=== PATIENT | male | born 1945 | race African-American/Black ===

== ENCOUNTER → 2016-09-15 | Outpatient (CLI) | payer OTHER ==
[2016-01-31 15:51] VITALS: BP 141/63
[~2016-09-15] MED LIST: AMLO5TAB4 PO; ANTI10DR7 AS; ASPI81TA44 PO; CLOP75TA57 PO; CRESTOR20 MG PO; GLYB5TAB3 PO; HYDR-2680 PO; HYDR-971 PO; Isosorbide Mononitrate PO; LISI-334 PO; METF-620 PO; METH-37 PO; METO25TA9 PO; REGADENOSON 0.4 MG/5 ML DISP.SYRIN. IV ONE; TAMS0.4C97 PO
--- NOTE | 2016-09-15 21:13 | RAD ---
APPROVED REPORT Test Type: Pharmacological Stress Nurse/Tech: Ainsley Rome RN Test Indications: chest pain Cardiac History: see ehr Medications: see ehr Medical History: see ehr Resting ECG: SR Resting Heart Rate: 55 bpm Resting Blood Pressure: 125/75mmHg Pretest Chest Pain: None Nurse/Tech Notes Lungs CTA, S1, S2 Consent: The procedure was explained to the patient in lay terms. Informed consent was witnessed. Norman eout was entered into [employer]. History and Stress Test performed by Shai TianNRobert Pharm. Details Pharmacologic stress testing was performed using 0.4mg per 5ml of regadenoson given intravenously ove r 7-10 seconds. Stress Symptoms No chest pain or symptoms. POST EXERCISE Reason for Termination: Infusion complete Max HR: 91 bpm Max Blood Pressure: 121/50mmHg Blood Pressure response to exercise: Normal blood pressure response during stress. Chest Pain: No. Arrhythmia: No. ST Change: No. INTERPRETATION Stress EKG Conclusion: No acute changes were noted. Imaging Protocol IMAGE PROTOCOL: Rest Tc-99m/stress Tc-99m 1 day Rest: Stress: Viability: Radiopharm.Tc99m [id number] Sestamibi Dose12.1mCi 34.7mCi Duration 15min. 10min. Img Date 09/15/2016 09/15/2016 Inj-Img [id number]. 75min. Rest Admin Site:IV - Right AntecubitalAdministrator:CLARISA Mata Stress Admin Site: IV - Right AntecubitalAdministrator: BETO Richardson, ARRT (R)(N) STRESS DATA End Diast. Vol.110.0mlAv. Heart Rate63.0bpm End Syst. Vol.28.0mlCO Index BSA0.0L/min Myocardial Onia020.0gEject. Kydztkyf02.0% Stress Rates Pk. Fill Rate3.03EDV/secLVtime Pk. Fill 230.88msec Pk. Empty Rate3.82ESV/secLVtime Pk. Nqfrn959.01msec 04/06 Pk. Fill1.37EDV/sec Stress Scores Regional WT1.00Summed WT3.00 Regional WM0.00Summed WM0.00 LV Perf. Quant 17 Seg. SSS1.00 17 Seg. SRS1.00 17 Seg. SDS1.00 Stress Defect Extent (% LAD)0.00Rest Defect Extent (% LAD)0.00Rev. Defect Extent (% LAD)0.00 Stress Defect Extent (% LCX) 0.00Rest Defect Extent (% LCX)0.00Rev. Defect Extent (% LCX)0.00 Stress Defect Extent (% RCA)0.00Rest Defect Extent (% RCA)0.00Rev. Defect Extent (% RCA)0.00 Stress Defect Extent (% ANTOINETTE)0.00Rest Defect Extent (% ANTOINETTE)0.00Rev. Defect Extent (% ANTOINETTE)0.00 Conclusion 1. No electrocardiographic changes suggestive of myocardial ischemia with pharmacological stress. 2. No perfusion defects to suggest myocardial ischemia or scar. 3. Normal wall motion and wall thickening with an ejection fraction of 75%. 4. Scan indicates low risk for future cardiac events
== END | disposition home or self-care (01) ==
LOC: NM 08:41
PROVIDERS: ATTEND Internal Medicine Cardiovascular Disease
DX: I25.119 Atherosclerotic heart disease of native coronary artery with unspecified angina pectoris (principal); R07.9 Chest pain, unspecified; Z95.5 Presence of coronary angioplasty implant and graft
CPT/HCPCS: 78452; 93017; 96374; 96375; 96376; A9500; J2785

== ENCOUNTER → 2016-10-01 | Outpatient (CLI) | payer OTHER ==
[2016-01-31 15:51] VITALS: BP 141/63
[~2016-10-01] MED LIST changes: -REGADENOSON 0.4 MG/5 ML DISP.SYRIN. IV ONE
--- NOTE | 2016-10-01 12:25 | CARD ---
APPROVED REPORT EXAM: Two-dimensional and M-mode echocardiogram with Doppler and color Doppler. Other Information Quality : Fair INDICATION Pericarditis Chest Pain 2D DIMENSIONS RVDd2.4 (2.9-3.5cm)Left Atrium(2D)2.8 (1.6-4.0cm) IVSd1.1 (0.7-1.1cm)Aortic Root(2D)2.6 (2.0-3.7cm) LVDd4.4 (3.9-5.9cm)LVOT Diameter2.0 (1.8-2.4cm) PWd1.1 (0.7-1.1cm)LVDs2.3 (2.5-4.0cm) FS (%) 30.0 %SV68.1 ml LVEF(%)70.0 (>50%) Aortic Valve AoV Peak Walter.171.1cm/sAoV VTI28.4cm AO Peak GR.11.7mmHgLVOT Peak Walter.161.3cm/s LVOT VTI 31.43cmAO Mean GR.5mmHg STEPHANIE (VMAX)2.29rn4BTA (VTI)3.35cm2 Mitral Valve MV E Beyekihy51.6cm/sMV DECEL [id number] MV A Tzxfqhoa48.2cm/sMV YBU30ej E/A Ratio0.8MVA (PHT)2.45cm2 Tricuspid Valve TR P. Jfgwjvbl712fb/sRAP XDNRXLRA6nhKh TR Peak Gr.76fbYuHUCE84ngGi LEFT VENTRICLE The left ventricle is normal size. Moderate concentric left ventricular hypertrophy The left ventricu lar systolic function is normal and the ejection fraction is within normal range. The Ejection Fracti on is 70%. There is normal LV segmental wall motion. Transmitral Doppler flow pattern is Grade II-abn ormal relaxation pattern. RIGHT VENTRICLE The right ventricle is normal size. The right ventricular systolic function is normal. ATRIA The left atrium size is normal. The right atrium size is normal. The interatrial septum is intact wit h no evidence for an atrial septal defect or patent foramen ovale as noted on 2-D or Doppler imaging. AORTIC VALVE The aortic valve is normal in structure Doppler and Color Flow revealed trace aortic regurgitation. T here is no significant aortic valvular stenosis. MITRAL VALVE The mitral valve is normal in structure There is no evidence of mitral valve prolapse. There is no mi tral valve stenosis. Doppler and Color-flow revealed trace mitral regurgitation. TRICUSPID VALVE The tricuspid valve is normal in structure Doppler and Color Flow revealed trace tricuspid regurgitat ion. The PA pressure was estimated at 23 mmHg. There is no tricuspid valve stenosis. PULMONIC VALVE The pulmonary valve is normal in structure and function. Doppler and Color Flow revealed no pulmonic valvular regurgitation. There is no pulmonic valvular stenosis. GREAT VESSELS The aortic root is normal in size. The ascending aorta is normal in size. The IVC is normal in size a nd collapses >50% with inspiration. PERICARDIAL EFFUSION There is no evidence of significant pericardial effusion. Critical Notification Critical Value: No <Conclusion> Moderate concentric left ventricular hypertrophy The left ventricular systolic function is normal and the ejection fraction is within normal range. The Ejection Fraction is 70%. Transmitral Doppler flow pattern is Grade II-abnormal relaxation pattern. The left atrium size is normal. The right atrium size is normal. Doppler and Color Flow revealed trace aortic regurgitation. Doppler and Color Flow revealed trace aortic regurgitation. Doppler and Color-flow revealed trace mitral regurgitation. Doppler and Color Flow revealed trace tricuspid regurgitation. The PA pressure was estimated at 23 mmHg. The pulmonary valve is normal in structure and function. There is no evidence of significant pericardial effusion.
== END | disposition home or self-care (01) ==
LOC: ECHO 09:49
PROVIDERS: ATTEND Internal Medicine Cardiovascular Disease
DX: I08.3 Combined rheumatic disorders of mitral, aortic and tricuspid valves (principal); Z86.79 Personal history of other diseases of the circulatory system; I31.9 Disease of pericardium, unspecified
CPT/HCPCS: 93306

== ENCOUNTER → 2016-10-27 | Day surgery (SDC) | payer OTHER ==
[~2016-10-27] MED LIST changes: +HYDROmorphone 2 MG/ML VIAL IV PRN; +IV RINGERS,LACTATED 1000ML 1,000 ML IV SCH; +LIDOCAINE 1% 1 ML SYRINGE. ID PRN; +METO25TA4 PO; +MORPHINE SULFATE 2 MG/ML DISP.SYRIN. IV PRN; +ONDANSETRON PF 4 MG/2 ML VIAL. IV PRN; +PROCHLORPERAZINE 10 MG/2 ML VIAL. IV PRN; +PROPOFOL 20 ML IV ONE; +fentaNYL PF VIAL 100 MCG/2 ML VIAL IV PRN
[2016-10-27 08:29] VITALS: BP 156/104
== END | disposition home or self-care (01) ==
LOC: ENDOS 06:32
PROVIDERS: ATTEND Internal Medicine Gastroenterology
DX: K64.0 First degree hemorrhoids (principal); K29.50 Unspecified chronic gastritis without bleeding; E78.00 Pure hypercholesterolemia, unspecified; I10 Essential (primary) hypertension; K21.9 Gastro-esophageal reflux disease without esophagitis; E11.9 Type 2 diabetes mellitus without complications; Z72.89 Other problems related to lifestyle; Z86.39 Personal history of other endocrine, nutritional and metabolic disease; Z72.0 Tobacco use; Z83.3 Family history of diabetes mellitus
CPT/HCPCS: 43235; 45378; J2704

== ENCOUNTER → 2016-11-01 | Outpatient (CLI) | payer OTHER ==
[2016-10-27 08:29] VITALS: BP 156/104
[~2016-11-01] MED LIST changes: -HYDROmorphone 2 MG/ML VIAL IV PRN; +IOHEXOL 240 MG/ML 50ML VIAL. PO ONE; +IOHEXOL 300 MG/ML 100ML VIAL. IV ONE; -IV RINGERS,LACTATED 1000ML 1,000 ML IV SCH; -LIDOCAINE 1% 1 ML SYRINGE. ID PRN; -MORPHINE SULFATE 2 MG/ML DISP.SYRIN. IV PRN; -ONDANSETRON PF 4 MG/2 ML VIAL. IV PRN; -PROCHLORPERAZINE 10 MG/2 ML VIAL. IV PRN; -PROPOFOL 20 ML IV ONE; -fentaNYL PF VIAL 100 MCG/2 ML VIAL IV PRN
--- NOTE | 2016-11-03 11:10 | KCIC ---
PQRS Compliance Statement: One or more of the following individualized dose reduction techniques were utilized for this examination: 1. Automated exposure control 2. Adjustment of the mA and/or kV according to patient size 3. Use of iterative reconstruction technique CT ABD PELV W/ORAL IV CONTRAST Clinical Indication: 15 pound weight loss in one month. Abdominal pain and nausea. Comparison: None. Technique: Helical CT imaging of the abdomen and pelvis is performed after 100 cc of Omnipaque 300 IV contrast. Oral contrast also given. Findings: Mild bilateral lower lobe dependent atelectasis. Cardiac size normal. There are multiple hypodense lesions in the liver. The 2 largest lesions are cyst. The smaller lesions are subcentimeter and incompletely characterized but are probably cysts or hemangiomas. Portal vein is patent. Calcified granulomas in the spleen. The gallbladder, pancreas, left adrenal gland, and abdominal aorta caliber are normal. There is a 13 mm right adrenal nodule that is indeterminate by attenuation. The kidneys enhance symmetrically without hydronephrosis. Atherosclerotic calcification of the infrarenal abdominal aorta and iliac arteries. Stomach unremarkable. No dilated small bowel. The appendix is normal. Scattered stool in the colon. No colon wall thickening is seen. No abdominal adenopathy or free fluid. There is a small hypodensity at the deep right inguinal ring that is probably hernia mesh. The urinary bladder is normal. Prostate size near upper limits of normal. No pelvic free fluid. Bilateral inguinal lymph nodes may be reactive. Probable Schmorl's node left inferior endplate of L4. Degenerative spondylosis and ligamentum flavum redundancy contribute to probably mild to moderate central canal stenosis of L3/L4 and L4/L5. IMPRESSION: 1. No acute abdominal or pelvic abnormality. 2. Small indeterminate right adrenal nodule could be further characterized with adrenal protocol CT or MR abdomen. 3. Multiple small hypodense lesions in the liver, probably cysts or hemangiomas. Electronically signed by: Sridhar Dawn MD (11/03/2016 11:06 AM) [id number]
== END | disposition home or self-care (01) ==
LOC: KCIC CT 09:12
PROVIDERS: ATTEND Internal Medicine Gastroenterology
DX: R10.9 Unspecified abdominal pain (principal); R63.4 Abnormal weight loss
CPT/HCPCS: 74177; 82565; Q9966; Q9967

== ENCOUNTER → 2016-11-11 | Outpatient (CLI) | payer OTHER ==
[2016-10-27 08:29] VITALS: BP 156/104
[~2016-11-11] MED LIST changes: -IOHEXOL 240 MG/ML 50ML VIAL. PO ONE; -IOHEXOL 300 MG/ML 100ML VIAL. IV ONE; +IOHEXOL 300 MG/ML 75 ML VIAL IV ONE
[2016-11-11 09:01] LABS: CREATININE 0.9 mg/dL (0.7-1.3); GFR 100.9
--- NOTE | 2016-11-11 16:21 | RAD ---
CT scan of the abdomen without and with contrast 11/11/2016 Clinical history: Right adrenal nodule. Technique: Unenhanced, contiguous, 3 mm axial sections were obtained through the abdomen. After the intravenous administration of 75 cc of Omnipaque 300, contiguous, 3 mm axial sections were obtained through the abdomen using an arterial phase of scanning. Delayed axial images were obtained through the abdomen at 12 minutes. One or more of the following individualized dose reduction techniques were utilized for this study: 1. Automated exposure control. 2. Adjustment of the mA and/or kV according to patient size. 3. Use of iterative reconstruction technique. Findings: Comparison study is dated 11/03/2016. Images through the lung bases demonstrate minimal dependent subsegmental atelectasis bilaterally. The unenhanced CT images through the abdomen demonstrate a 2 cm low-attenuation lesion involving the right adrenal gland which corresponds to abnormality seen on the patient's previous study. It has areas of fat attenuation and is consistent with an adrenal adenoma. Postcontrast images demonstrate several rounded low-attenuation lesions scattered throughout both lobes of the liver which measure 3 mm to 2 cm in size. They likely represent hepatic cysts. These are unchanged. The spleen, pancreas, left adrenal gland and kidneys are within normal limits. Mild to moderate atheromatous/atherosclerotic plaque formation is seen involving the abdominal aorta. The abdominal aorta tapers normally. No free fluid or free air is seen within the abdomen. There is no evidence of bowel obstruction. The osseous structures are unchanged. Impression: 2 cm right adrenal adenoma.
== END | disposition home or self-care (01) ==
LOC: CT 08:24
PROVIDERS: ATTEND Internal Medicine Gastroenterology
DX: E27.8 Other specified disorders of adrenal gland (principal); D35.01 Benign neoplasm of right adrenal gland
CPT/HCPCS: 36415; 74170; 82565; 84520; Q9967

== ENCOUNTER → 2016-11-15 | Outpatient (CLI) | payer OTHER ==
[2016-10-27 08:29] VITALS: BP 156/104
[~2016-11-15] MED LIST changes: +BARIUM SULFATE 60% 355 ML SUSP PO ONE; -IOHEXOL 300 MG/ML 75 ML VIAL IV ONE
--- NOTE | 2016-11-15 11:04 | RAD ---
Small bowel series, 11/15/2016: History: Weight loss, abdominal pain with nausea The preliminary abdominal image demonstrates a nonspecific gas pattern. There is no evidence of organomegaly. Overhead and spot films were obtained following oral ingestion of liquid barium. 0.9 minutes of fluoroscopy time was utilized. 3 fluoroscopic spot images were recorded. The small bowel loops are of normal caliber with no evidence of thickening of their folds. There is normal transit of the barium through the small bowel into the colon. The terminal ileum shows no abnormality. IMPRESSION: No significant small bowel abnormality is detected.
== END | disposition home or self-care (01) ==
LOC: RAD 08:28
PROVIDERS: ATTEND Internal Medicine Gastroenterology
DX: R10.9 Unspecified abdominal pain (principal); R11.0 Nausea; R63.4 Abnormal weight loss
CPT/HCPCS: 74250

== ENCOUNTER → 2017-10-13 | Outpatient (CLI) | payer OTHER ==
[2017-10-13] MEDS: IOHEXOL 240 MG/ML 50ML VIAL. PO (09:30)
[2017-10-13] MEDS: IOHEXOL 300 MG/ML 100ML VIAL. IV (09:30)
== END | disposition home or self-care (01) ==
LOC: KCIC CT 08:29
DX: D35.01 Benign neoplasm of right adrenal gland (principal); K76.89 Other specified diseases of liver; M47.896 Other spondylosis, lumbar region
CPT/HCPCS: 74177; Q9966; Q9967

== ENCOUNTER → 2020-07-03 | Outpatient (CLI) | payer BC ==
[2016-10-27 08:29] VITALS: BP 156/104
[~2020-07-03] MED LIST changes: -ASPI81TA44 PO; +ASPI81TA59 PO; -BARIUM SULFATE 60% 355 ML SUSP PO ONE; +HYDR-3164 PO; -HYDR-971 PO; -LISI-334 PO; +LISI20TA18 PO; -METF-620 PO; +METF10007 PO; +METO-239 PO; -METO25TA9 PO
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
== END ==
LOC: KCIC 10:32
PROVIDERS: ATTEND Nurse Practitioner Gerontology
DX: M19.012 Primary osteoarthritis, left shoulder (principal)
CPT/HCPCS: 73030; 73060

== ENCOUNTER → 2020-12-31 | Outpatient (CLI) | payer BC ==
[2016-10-27 08:29] VITALS: BP 156/104
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
== END ==
LOC: KCIC 10:10
PROVIDERS: ATTEND Family Medicine
DX: R91.8 Other nonspecific abnormal finding of lung field (principal); R05 Cough; R53.83 Other fatigue; R06.02 Shortness of breath; Z18.89 Other specified retained foreign body fragments
CPT/HCPCS: 71046

== ENCOUNTER → 2021-02-09 | Outpatient (CLI) | payer BC ==
[2016-10-27 08:29] VITALS: BP 156/104
[~2021-02-09] MED LIST changes: +IOHEXOL 300 MG/ML 50 ML VIAL. INT ART ONE; +LIDOCAINE 1% Multi-Dose 20 ML VIAL. ID ONE
--- NOTE | 2021-02-09 15:22 | KCIC ---
Exam Date: 02/09/2021 1:[address] LEFT UPPER EXTREMITY WITH Indication: Reason: Chronic Left shoulder pain, no known injury. / Spl. Instructions: / History: . Technique: CT angiogram of the left shoulder was performed following the intra-articular injection of dilute iodinated contrast (12 cc of 1:1 Omnipaque 300: Normal saline). The fluoroscopic-guided inje ction procedure is reported separately. One or more of the following dose reduction techniques were utilized: *Automated exposure control (AEC) *Adjustment of mA and/or kV according to patient size *Use of iterative reconstruction technique *CT scan done according to ALARA, or ALARA/IMAGE GENTLY FINDINGS: There is no extravasation/extension of contrast into the subacromial/subdeltoid bursa to suggest full -thickness rotator cuff tendon tear. No partial thickness articular sided rotator cuff tendon tear i s identified. Rotator cuff musculature demonstrates a normal CT appearance. Moderate degenerative changes are present glenohumeral joint with moderate diffuse chondral thinning, multifocal full-thickness chondral defects, small osteophytes, and subchondral cystic changes involv ing the posterior glenoid. Contrast extension into the superior labrum is consistent with a superior labral tear. Mild degenerative changes are present at the acromioclavicular joint. There is an intact type I/type II acromion. No acute fracture or dislocation. Alignment is maintained. IMPRESSION: No evidence for full-thickness rotator cuff tendon tear. Moderate degenerative changes noted at the glenohumeral joint, with a superior labral tear. Electronically signed by: Umesh Arias MD (02/09/2021 3:20 PM) [id number]
--- NOTE | 2021-02-09 15:25 | KCIC ---
Exam Date: 02/09/2021 12:45 PM DG ARTHROGRAM SHOULDER LEFT Indication: Reason: LEFT SHOULDER PAIN / Spl. Instructions: FT 0:07, IMAGES 2, 10ML OMNI 300, 10ML SA LINE / History: . SHOULDER FLUOROSCOPIC GUIDED NEEDLE PLACEMENT AND DILUTE IODINATED CONTRAST INJECTION FOR CT ARTHROGR AM WITH CONTRAST PROCEDURE: A timeout was performed to ensure that the patient's name and procedure matched our infor mation. After the risks, benefits, personnel, and alternatives to the procedure were discussed with t he patient, the patient elected to proceed and signed the consent form. Under fluoroscopic evaluation , a suitable target was selected and the overlying skin was marked. The patient was prepped and drape d in the usual sterile fashion. Local anesthesia with 5.0 cc of lidocaine was given. Under fluoroscop ic guidance, a 20 gauge spinal needle was inserted through the anesthetized track into the LEFT shoul kecia joint. The joint was then injected with 12 cc of a dilute iodinated contrast solution (1:1 Omnipa que 300: Normal saline). Total fluoroscopy time: 7 seconds Fluoroscopic images: 0 The patient tolerated the procedure very well without any immediate adverse consequence. Spot images demonstrate successful injection of the joint. IMPRESSION: Successful fluoroscopic guided needle placement and injection of dilute iodinated contra st into the LEFT shoulder joint for CT shoulder arthrogram with contrast. Electronically signed by: Umesh Arias MD (02/09/2021 3:23 PM) [id number]
== END | disposition home or self-care (01) ==
LOC: KCIC 12:30
PROVIDERS: ATTEND Orthopaedic Surgery
DX: M25.512 Pain in left shoulder (principal); S43.432A Superior glenoid labrum lesion of left shoulder, initial encounter; M19.012 Primary osteoarthritis, left shoulder; I25.10 Atherosclerotic heart disease of native coronary artery without angina pectoris; I10 Essential (primary) hypertension; E78.00 Pure hypercholesterolemia, unspecified; K21.9 Gastro-esophageal reflux disease without esophagitis; E11.9 Type 2 diabetes mellitus without complications; N40.0 Benign prostatic hyperplasia without lower urinary tract symptoms; Z79.82 Long term (current) use of aspirin; Z79.84 Long term (current) use of oral hypoglycemic drugs; Z79.899 Other long term (current) drug therapy; Z98.890 Other specified postprocedural states; Z82.49 Family history of ischemic heart disease and other diseases of the circulatory system; X58.XXXA Exposure to other specified factors, initial encounter; Y93.89 Activity, other specified; Y92.89 Other specified places as the place of occurrence of the external cause; Y99.8 Other external cause status
CPT/HCPCS: 23350; 73201; 77002; J3490; Q9967